=== PATIENT | male | born 1950 | race Caucasian/White ===

== ENCOUNTER → 2017-06-13 | Outpatient (CLI) | payer OTHER, MEDICARE ==
[~2017-06-13] VITALS: Ht 167.6 cm; Wt 81.5 kg
[~2017-06-13] MED LIST: ACETAMINOPHEN325 M1 PO; CELEXA 10 MG TA10 M1 PO; CHLORTRIMETON; CLARITIN10 MG PO; COZAAR100 MG PO; FERROUS SULFATE PO; FLONASE 0.05%50 MCG NASAL; HYTRIN 1 MG CAP1 MG PO; LIMBREL 500 MG500 MG PO; LOVASTAT20 PO; MEN PO; NAPROSYN500 MG PO; NORCO 5-325 TA1 EACH PO; OMEPRAZOLE 20 M20 MG PO; RAPAFLO8 MG PO; TRAMADOL 50 MG50 MG PO; VOLTAREN GEL 1100 G1; VOLTAREN GEL 1100 G1 TOP; ZIAC 5-6.25 MG1 EACH PO; [UNRECOGNIZED DRUG - OTHER]; [UNRECOGNIZED DRUG - OTHER] PO
--- NOTE | ~2017-06-13 | HPC ---
[facility] [place] [address] PAIN MANAGEMENT CONSULTATION Name: MARGOT HART Room #: REG [facility].#: [id number] Admission: 06/13/17 Attend Phys: Aravind Castellano DO Discharge: Date of : 50 Report #: [id number] THIS REPORT FOR: //name// CC: Kyree Castellano DATE OF SERVICE: 06/13/2017 CHIEF COMPLAINT: Low back pain, right lower extremity pain with paresthesias. HISTORY OF PRESENT ILLNESS: As you know, the patient is a 67-year-old male who has had a ongoing history of intermittent low back pain that has been present for years. He states that on 05/27/2017, he began to experience increasing back pain, right lower extremity pain with paresthesias. The patient ultimately sought evaluation from his primary care physician, Dr. Oneal Gill, who referred the patient to our clinic for evaluation for suspected lumbar radiculopathy. Findings on the MRI were such that the patient was referred to our clinic for interventional treatments. The patient indicates today pain is continuous, describes the pain as shooting, stabbing, sharp, numbness and tingling, places current pain score 10/10, daily average at 8-10/10, worst pain has been is 10/10. The patient states that sitting and standing for long periods of time exacerbates symptoms; lying down and repositioning appears to improve pain. He has been referred to our service by his primary care physician, Dr. Oneal Gill to discuss possibility of epidural injections to address lumbar radicular symptoms. PAST MEDICAL HISTORY: 1. Hypertension. 2. Gastroesophageal reflux disease. 3. Hyperglycemia. 4. Seasonal allergies. 5. Depression. 6. Hyperlipidemia. 7. Adenocarcinoma of the prostate. 8. Colon polyps. PAST SURGICAL HISTORY: 1. Excision of hemangioma. 2. Open reduction and internal fixation of left ankle fracture. 3. Herniorrhaphy x 2. 4. Radiation therapy of the prostate. SOCIAL HISTORY: The patient denies tobacco use. Denies IV or illicit drug use. He denies chronic alcohol use. 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 He is not receiving workman's compensation nor is he trying to obtain [address] [address] PAIN MANAGEMENT CONSULTATION Name: MARGOT HART [facility] [id number] Admission: 06/13/17 Attend Phys: Aravind Castellano DO Discharge: Date of : 50 Report #: [id number] disability benefits. He is unaccompanied today. REVIEW OF SYSTEMS: Positive for wearing corrective eyewear, night sweats, peptic ulcer disease, nocturia, depression, low back pain, right lower extremity pain and paresthesias. All other review of systems negative per 12-point review of systems other than those listed in history of present illness. Pain impact score 43/70 indicating moderate to severe interference of daily activities secondary to pain. ALLERGIES: No known drug allergies. CURRENT MEDICATIONS: Voltaren gel, apply topically up to 4 times a day; ferrous sulfate mg once a day, lovastatin 20 mg twice a day, Hytrin 1 mg once a day, losartan 100 mg once a day, omeprazole 20 mg per day, Ziac 5/6.25 mg once a day, Rapaflo 8 mg once a day, citalopram 10 mg per day. IMAGING: MRI of lumbar spine obtained 06/06/2017 shows L1-L2 unremarkable; L2-L3, minimal disk bulge, slightly more prominent on the right; mild neural foraminal narrowing. No evidence of disk herniation or central canal stenosis. L3-L4, moderate right foraminal narrowing, minimal thecal sac stenosis measuring 1.1 cm. L4-L5, hypertrophic bilateral facet arthropathy with a 0.3 cm anterior listhesis, no evidence of disk herniation, moderate right and mild left neural foraminal narrowing, thecal sac measures 1 mm. L5-S1, thecal sac measuring 1.2 mm. There is no evidence of disk herniation, central canal stenosis, neural foraminal stenosis. PHYSICAL EXAMINATION: VITAL SIGNS: Blood pressure 136/93, pulse 54, respiratory rate 16, unlabored. The patient is 100% on room air, height 5 feet 6 inches tall, weight 179.6 kg, BMI calculated 29. GENERAL: Well-developed, well-nourished, well-hydrated 67-year-old male appearing his stated age, placing current pain score at around 8 to 10/10. HEENT: Normocephalic, atraumatic. Pupils equal, round, reactive to light. Extraocular muscles are intact. Sclerae are nonicteric without injection. NEUROLOGIC: Cranial nerves 2-12 grossly intact. Speech is fluent. The patient deemed a good historian. LUNGS: Clear. No wheeze, rhonchi or rales. CARDIOVASCULAR: Regular. No appreciable gallop or rub. ABDOMEN: Soft, nontender, nondistended, normoactive bowel sounds. EXTREMITIES: Show no clubbing, no cyanosis, no edema. MUSCULOSKELETAL: Lower extremity strength appears equal and symmetrical 5/5, intact to light touch from L1 through S2 dermatomes. Deep tendon reflexes are symmetrical at patellar and Achilles. Ankle clonus negative. Babinski is negative. Gait slightly antalgic favoring right lower extremity over left. Seated straight leg raising negative. Supine straight leg raising, mildly [facility] [address] [place] [address] PAIN MANAGEMENT CONSULTATION Name: MARGOT HART Room #: REG [facility].#: [id number] Admission: 06/13/17 Attend Phys: Aravind Castellano DO Discharge: Date of : 50 Report #: [id number] positive right. Kofi's test negative. Modified Gaenslen's positive for axial low back pain. ASSESSMENT: 1. Symptomatic lumbar radiculopathy. 2. Displacement of lumbar intervertebral disk with radiculopathy. 3. Lumbosacral spondylosis with radiculopathy. 4. Neural foraminal stenosis of the lumbar spine. 5. Chronic intractable pain. PLAN: 1. The patient has been referred to our service by his primary care physician, Dr. Oneal Gill for evaluation for suspected lumbar radiculopathy. The patient and I spent approximately 24 minutes of time reviewing the patient's MRI and how the findings on the MRI correlate to symptoms he is currently experiencing. I am pleased to indicate today the patient has no notable surgical need at this juncture. I do believe that more conservative treatment options may be available. We discussed the following treatments with the patient based on the findings on MRI. 2. The patient and I discussed physical therapy, stretching exercises, core strengthening. The patient states he has been provided information about this type of treatment he has been doing these at home, but has not noticed much in the way of improvement. He has not had formalized physical therapy. We discussed medication management with addition of a nonsteroidal anti-inflammatory on a consistent basis along with a neuropathic pain medication in the form of either Neurontin, Lyrica, amitriptyline, nortriptyline, Cymbalta. We also discussed epidural injections for which the patient was referred to our clinic. Spinal cord stimulators were discussed, though I do not feel the patient is at this level of necessity. Surgical options as indicated above are not necessary. After reviewing the risks and benefits of all the proposed treatment options, the patient chose to begin with a lumbar epidural injection. The patient was advised risks and benefits of a lumbar epidural injection. These risks include but are not necessarily limited to bleeding, bruising, infection, worsening pain, no relief of pain, also risk of temporary or permanent muscle weakness, temporary or permanent nerve damage, possible paralysis and . The patient states understood and wished to proceed. No medication changes were made at today's visit. The patient will continue current medical therapy as previously prescribed. The patient will return to our clinic in approximately 3 weeks. At that time, review efficacy of today's epidural injection and determine if next in the series of epidural injections might be necessary. We wish to thank Dr. Gill for the referral of this patient [place] [address] PAIN MANAGEMENT CONSULTATION Name: MARGOT HART Room #: REG [facility] Eduardo#: [id number] Admission: 06/13/17 Attend Phys: Aravind Castellano DO Discharge: Date of : 50 Report #: [id number] will keep you apprised of his response to treatment as we address his ongoing pain. Again, we wish to thank you for the opportunity to participate in his care. PROCEDURE NOTE DESCRIPTION OF PROCEDURE: L5-S1 right paramedian epidural steroid injection under fluoroscopic guidance. This is the first procedure of the first series that the patient is undergoing. After obtaining written consent, the patient was taken back to the fluoroscopy suite, placed in a prone position with pillow under the abdomen to decrease lumbar lordosis. The skin overlying the lumbosacral area was then prepped and draped in aseptic fashion. The L5-S1 vertebral interspace was then identified by AP fluoroscopy. The skin and subcutaneous tissue overlying the target site of injection was anesthetized with 3 mL 1% lidocaine. A(n) 20-guage 3-1/2 inch Tuohy needle was then advanced under fluoroscopic guidance towards the epidural space using a right paramedian approach. The epidural space was identified using loss of resistance to air technique. After negative aspiration for heme or cerebrospinal fluid, a total of 1 mL of Omnipaque was injected. A lumbar epidurogram was confirmed using both AP and lateral fluoroscopy. After negative aspiration for heme or cerebrospinal fluid, 5 mL of solution containing 2 mL 40 mg/mL, 80 mg total triamcinolone, 3 mL lidocaine 1% was injected in increments. Contrast spread was noted at the posterior epidural space. The needle was then retracted approximately half way and needle tract flushed with 1 mL of 1% lidocaine. Needle was then removed. There were no apparent sensory or motor deficits in the lower extremity following the procedure. A sterile bandage was placed over the injection site. The heart rate, pulse, oximetry and blood pressure were continuously monitored after the procedure. There were no apparent complications. The patient tolerated the procedure well and was carefully escorted to the recovery room in stable condition. There were no apparent complications. After meeting discharge criteria, the patient was then discharged home. <ELECTRONICALLY SIGNED> By: Aravind Castellano DO 06/26/17 0712 [id number] Aravind Castellano DO /nt
[2017-06-13 09:54] VITALS: BP 136/93
== END | disposition home or self-care (01) ==
LOC: PAIN 07:11
DX: M51.16 Intervertebral disc disorders with radiculopathy, lumbar region (principal); M48.06 Spinal stenosis, lumbar region; G89.29 Other chronic pain; I10 Essential (primary) hypertension; K21.9 Gastro-esophageal reflux disease without esophagitis; Z88.8 Allergy status to other drugs, medicaments and biological substances; F32.9 Major depressive disorder, single episode, unspecified; E78.5 Hyperlipidemia, unspecified; Z87.19 Personal history of other diseases of the digestive system; Z85.46 Personal history of malignant neoplasm of prostate

== ENCOUNTER → 2017-07-04 | Outpatient (CLI) | payer OTHER, MEDICARE ==
[~2017-07-04] VITALS: Ht 167.6 cm; Wt 76.0 kg
[~2017-07-04] MED LIST changes: +NABUMETONE 500500 M1 PO
--- NOTE | ~2017-07-04 | HPC ---
[facility] [place] [address] PAIN MANAGEMENT CONSULTATION Name: MARGOT HART [facility] [id number] Admission: 07/04/17 Attend Phys: Aravind Castellano DO Discharge: Date of : 50 Report #: [id number] THIS REPORT FOR: //name// CC: Kyree Castellano DATE OF SERVICE: 07/04/2017 REFERRING PHYSICIAN: Kyree Gill MD CHIEF COMPLAINT: Low back pain, right lower extremity pain and paresthesias. HISTORY OF PRESENT ILLNESS: As you know, the patient is a 67-year-old male who was referred back to our clinic by his primary care physician, Dr. Kyree Gill for recurrent lumbar radicular symptoms. The patient at that visit of 06/13/2017, diagnosed with symptomatic lumbar radiculopathy secondary to the displacement of lumbar intervertebral disk and lumbosacral spondylosis without myelopathy. The patient's combinations of symptoms lead to neural foraminal stenosis of the lumbar spine and thus lumbar radiculopathy. He underwent a lumbar epidural injection under fluoroscopic guidance at that visit, which according to the patient provided no pain improvement. He reports today pain level of 10/10, states pain is beginning in low back, radiating down the right leg all the way to his ankle. He states his pain is sore, aching, numbness, and tingling, exacerbated with sitting, improves with standing. He has returned today in followup visit to discuss treatment options. ALLERGIES: No known drug allergies. CURRENT MEDICATIONS: Diclofenac sodium gel, ferrous sulfate, lovastatin, Hytrin, Cozaar, omeprazole, Ziac, Rapaflo, and Celexa. SOCIAL HISTORY: The patient denies tobacco use. Denies IV or illicit drug use. Denies any chronic alcohol use. He is unaccompanied at this visit. IMAGING: No new imaging available. PHYSICAL EXAMINATION: VITAL SIGNS: Blood pressure 125/57, pulse is 70, respiratory rate 16 and unlabored, the patient is 98% on room air, height 5 feet 6 inches tall, weight 167 pounds, and BMI calculated 27. GENERAL: Well-developed, well-nourished, well-hydrated 67-year-old male, he appears his stated age, he is placing current pain score 10/10. HEENT: Normocephalic, atraumatic. Pupils are equal, round, and reactive to light. Extraocular muscles are intact. Sclerae [place]ter[place] [address] PAIN MANAGEMENT CONSULTATION Name: MARGOT HART Room #: REG [facility].#: [id number] Admission: 07/04/17 Attend Phys: Aravind Castellano DO Discharge: Date of : 50 Report #: [id number] NEUROLOGIC: Cranial nerves 2-12 are grossly intact. Speech is fluent. The patient deemed a good historian. LUNGS: Clear. No wheeze, rhonchi, or rales. CARDIOVASCULAR: Regular. No appreciable gallop or rub. ABDOMEN: Soft, nontender, and nondistended. EXTREMITIES: Show no clubbing, no cyanosis, and no edema. MUSCULOSKELETAL: Seated straight leg raising positive right, supine straight leg raising positive right. Kofi's test negative. Modified Gaenslen's positive for axial low back pain. Muscle bulk and tone equal and symmetrical in lower extremities. Gait mildly antalgic favoring right lower extremity over left. ASSESSMENT: 1. Symptomatic lumbar radiculopathy. 2. Displacement of lumbar intervertebral disk with radiculopathy. 3. Lumbosacral spondylosis with radiculopathy. 4. Neural foraminal stenosis of lumbar spine with radiculopathy. 5. Chronic intractable pain. PLAN: 1. The patient returns today in followup visit having indicated only transient improvement with the epidural injection at last visit. He received no long-term benefit. Unfortunately, I believe his foraminal stenosis may be such that surgical options may be necessary. We did discuss the possibility of initiating neuropathic pain medications in hopes of improving pain, we will make this adjustment today, if this is ineffective, we would recommend moving forward with surgical options including a spinal cord stimulator trial as a possibility or traditional neurosurgery approach. We will consider his options, but he is amenable to begin medication therapy. 2. The patient was provided a sample pack of Gralise, he will begin at 300 mg dose and then continue as directed in the sample pack. He will contact our clinic in approximately a week to discuss effects. He is to continue until reaching 1800 mg at night, assuming no side effects, determine if he receives benefit. He was given a sample pack of the Gralise today. We will review its efficacy in approximately 2 weeks. 3. We would consider referral to a neurosurgeon if the patient requests. If this is the case, I do recommend that the patient contact his PCP to discuss their recommended surgical teams. We could also assist in referring the patient if needed. 4. We will see the patient back in followup visit hopefully in a couple of weeks with good efficacy from neuropathic pain medication. By: 0810 0957 Aravind Castellano, DO /nt
== END | disposition home or self-care (01) ==
LOC: PAIN 07:05
DX: M51.16 Intervertebral disc disorders with radiculopathy, lumbar region (principal); M47.817 Spondylosis without myelopathy or radiculopathy, lumbosacral region; Z79.899 Other long term (current) drug therapy; M48.06 Spinal stenosis, lumbar region; G89.29 Other chronic pain

== ENCOUNTER → 2017-08-01 | Outpatient (CLI) | payer OTHER, MEDICARE ==
[~2017-08-01] VITALS: Ht 167.6 cm; Wt 76.5 kg
[~2017-08-01] MED LIST changes: +NUCYNTA50 MG PO
--- NOTE | ~2017-08-01 | HPC ---
[facility] [address] [place] [address] PAIN MANAGEMENT CONSULTATION Name: MARGOT HART [facility] [id number] Admission: 08/01/17 Attend Phys: Aravind Castellano DO Discharge: Date of : 50 Report #: [id number] THIS REPORT FOR: //name// CC: Kyree Castellano DATE OF SERVICE: 08/01/2017 REFERRING PHYSICIAN: Kyree Gill M.D. CHIEF COMPLAINT: Low back pain, right lower extremity pain and paresthesias. HISTORY OF PRESENT ILLNESS: As you know, the patient is a 67-year-old male with longstanding history of low back pain, right lower extremity pain. The patient indicates pain is sharp and stabbing in sensation, places current pain score today over 10 exacerbated with sitting. Nothing appears to improve pain. The patient was referred to our service initially to discuss treatment options. We have trialed the patient on medication therapy. He has even undergone the requested epidurals without efficacy. He returns today in followup visit stating he needs assistance with medication management. He states that his symptoms have become intolerable and he is requesting adjustment in treatment. He denies any injury or trauma that may have led to progression of symptoms. ALLERGIES: No known drug allergies. CURRENT MEDICATIONS: Nabumetone 500 mg 3 times a day, ferrous sulfate 65 mg per day, lovastatin 20 mg twice a day, terazosin 1 mg per day, losartan 100 mg per day, omeprazole 20 mg per day, Ziac 5.5/6.25 mg once a day, Rapaflo 8 mg once a day and citalopram 10 mg per day. SOCIAL HISTORY: The patient denies tobacco, IV or illicit drug use. Denies any chronic alcohol use. He is accompanied by his , present in room today. IMAGING: No new imaging available. PHYSICAL EXAMINATION: VITAL SIGNS: Blood pressure 142/88, pulse is 56 and respiratory rate 16 and unlabored. The patient is 97% on room air, height 5 feet 6 inches tall, weight 168.6 pounds and BMI calculated 27.2. GENERAL: Well developed, well nourished, well hydrated, somewhat anxious 67-year-old male appearing his stated age, placing current pain score at approximately 8/10. HEENT: Normocephalic and atraumatic. Pupils equal, round and reactive to light. Extraocular muscles are intact. Sclerae nonicteric without injection. NEUROLOGICAL: Cranial nerves 2 through 12 grossly intact. Speech is pressured. [address] [address] PAIN MANAGEMENT CONSULTATION Name: MARGOT HART Room #: REG [facility]#: [id number] Admission: 08/01/17 Attend Phys: Aravind Castellano DO Discharge: Date of : 50 Report #: [id number] EXTREMITIES: Show no clubbing, no cyanosis and no edema. MUSCULOSKELETAL: Lower extremity strength is symmetrical 5/5, muscle bulk and tone equal and symmetrical. Seated straight leg raising positive right and supine straight leg raising positive on right. Kofi's test negative. Modified Gaenslen's positive for axial low back pain. Ankle clonus negative. Babinski is negative. Gait is mildly antalgic favoring right lower extremity over the left. ASSESSMENT: 1. Symptomatic lumbar radiculopathy. 2. Displacement of lumbar intervertebral disk with radiculopathy. 3. Lumbosacral spondylosis with radiculopathy. 4. Neural foraminal stenosis of the lumbar spine. 5. Chronic intractable pain. PLAN: 1. The patient returns today in followup visit requesting adjustments in medication therapy. He has undergone epidural injections. We have trialed more conservative treatment options and has not seen efficacy with either of these adjustments. The patient was sent to our clinic to trial epidural injections. Unfortunately, these have failed from a standpoint if they did not provide long-term efficacy. We have recommended the patient to follow up with Neurosurgery as he will likely need surgical options to control symptoms. We have agreed to provide the patient with adjustments in therapy today in hopes of improving pain for a short term treatment option prior to surgical consultation. 2. The patient will be started on samples of Lyrica. We have given the patient Lyrica to help control neuropathic symptoms. He will start with a dose of 75 mg dose for 7 nights, increase to 150 mg doses for 7 nights, then 75 mg morning and 150 mg at night. He has not had to titrate the medication to this level. If no improvement in symptoms and no side effects, we may escalate the dose further as you are aware 450-600 mg is the top dose of this medication can be titrated too. This is the initial step in therapy in hopes of improving the patient's neuropathic symptoms. 3. The patient was provided prescription of Nucynta 50 mg dose 1 tab p.o. t.i.d., given the patient #90 tablets. We have utilized Nucynta specifically for its neuropathic pain control and its low potential for abuse. We requested that the Nucynta be provided on 3 times a day basis for pain control. This is an appropriate medication for this person's condition. Those medications such as hydrocodone, oxycodone and morphine are not indicated for neuropathic pain secondary to lumbar radiculopathy and should not be requested or utilized. We must use the appropriate medication for the appropriate problem. We will begin the process of authorization if necessary to get the Nucynta approved. 4. The patient will follow up with Neurosurgery as we have suggested as the patient will ultimately need some type of surgical intervention given the fact [facility] [address] [place] [address] PAIN MANAGEMENT CONSULTATION Name: MARGOT HART Room #: REG [facility].#: [id number] Admission: 08/01/17 Attend Phys: Aravind Castellano DO Discharge: Date of : 50 Report #: [id number] that he has not noted improvement in symptoms with more conservative treatment options. By: 0737 0849 Aravind Castellano DO /nt
[2017-08-01 10:29] VITALS: BP 142/88
== END | disposition home or self-care (01) ==
LOC: PAIN 07:02
DX: M51.16 Intervertebral disc disorders with radiculopathy, lumbar region (principal); M47.27 Other spondylosis with radiculopathy, lumbosacral region; G89.29 Other chronic pain; Z79.899 Other long term (current) drug therapy

== ENCOUNTER → 2017-08-21 | Outpatient (CLI) | payer OTHER, MEDICARE ==
[~2017-08-21] VITALS: Ht 167.6 cm; Wt 77.4 kg
[~2017-08-21] MED LIST changes: +LYRICA 75 MG CA75 MG PO; +MOBIC15 MG PO
--- NOTE | ~2017-08-21 | HPC ---
[facility] [place] [address] PAIN MANAGEMENT CONSULTATION Name: MARGOT HART [id number] Admission: 08/21/17 Attend Phys: Aravind Castellano DO Discharge: Date of : 50 Report #: [id number] THIS REPORT FOR: //name// CC: Kyree Castellano REFERRING PHYSICIAN: Dr. Kyree Gill CHIEF COMPLAINT: Low back pain, right lower extremity pain and paresthesias. HISTORY OF PRESENT ILLNESS: As you know, the patient is a 67-year-old male with long-standing history of low back pain, right lower extremity pain and paresthesias. He indicates pain is sharp, stabbing. He had numbness and tingling when describing pain. He states that he is now able to stand and go about on activities of daily living, but is unable to sit due to ongoing pain issues. The patient has been trialled on immediate release gabapentin, but failed due to side effects of somnolence, decreased mental acuity, disorientation and confusion. We did start the patient on once a day dose of Gralise at night in hopes of mitigating some of the symptoms he was experiencing with gabapentin. This medication worked well, but coverage was suboptimal and cost of the medication was nearly $900 a month. We then transferred the patient over to Lyrica, which he is taking currently. He is taking 75 mg in morning and 150 mg at night. He has had no side effects and is noting improvement in symptoms. He is returning in followup visit for adjustments in therapy and to discuss options for treatment. ALLERGIES: No known drug allergies. CURRENT MEDICATIONS: Nabumetone, ferrous sulfate, lovastatin, terazosin, losartan, omeprazole, Ziac, Rapaflo, citalopram, Lyrica. SOCIAL HISTORY: The patient denies tobacco, IV or illicit drug use. Denies any chronic alcohol use. He is accompanied by his who is present in room today. IMAGING: No new imaging available. PHYSICAL EXAMINATION: VITAL SIGNS: Blood pressure 121/84, pulse is 56, respiratory rate 16 and unlabored, the patient is 99% on room air. Height 5 feet 6 inches tall, weight 170.6 pounds, BMI calculated at 27.5. GENERAL: Well-developed, well-nourished, well-hydrated, 67-year-old male. He appears stated age, pain is rated today at 3/10. HEENT: Normocephalic, atraumatic. Pupils are equal, round, and reactive to light. Extraocular muscles are intact. EXTREMITIES: Show no clubbing, no cyanosis, no edema. [facility] [address] [place] [address] PAIN MANAGEMENT CONSULTATION Name: HARTMARGOT TERRY KEISHA Room #: REG [facility] [place]#: [id number] Admission: 08/21/17 Attend Phys: Aravind Castellano DO Discharge: Date of : 50 Report #: [id number] MUSCULOSKELETAL: Lower extremity strength is symmetrical again today at 5/5, intact to light touch from L1 through S2 dermatomes. Seated straight leg raising positive on the right, supine straight leg raising positive on the right. ASSESSMENT: 1. Symptomatic lumbar radiculopathy. 2. Displacement of lumbar intervertebral disk with radiculopathy. 3. Lumbosacral spondylosis with radiculopathy. 4. Neural foraminal stenosis of lumbar spine. 5. Chronic intractable pain. PLAN: 1. The patient returns today in followup visit where we have discussed medication management. I do believe that Lyrica is a good choice for him to take. He is not indicating any side effects to medication at this time and is noting good benefit. He originally was unable to stand, walk or do any activities due to pain. He is now only limited in sitting for any length of time due to increasing pain with numbness and tingling. Overall, the patient showed some significant improvement. I recommend adjusting his Lyrica at this time. 2. We will increase Lyrica to 150 mg in morning and 150 mg at night. Continue for 7 days, then 150 mg in morning, 225 mg at night for 7 days, then 225 mg b.i.d. The patient was advised anytime during the titration if he notes improvement in symptoms, to stabilize that dose. If no improvement, then adjust medication as directed. 3. The patient is considering possible surgical options. We discussed with him today the spinal cord stimulator technology and how it may improve his symptoms. He is interested in the device itself. He was given information both in digital and written form today about Nevro spinal cord stimulator. We also discussed the fact that he would have to see Psychiatry and be deemed an appropriate candidate from a psychological standpoint to undergo trial implantation. If the patient wishes to move forward with this device, he will contact the psychiatrist and be seen in consultation. Once he has completed his psychiatric evaluation, he is to contact our clinic so that we can look for the results. If he is noted to be a good candidate from a psychological standpoint, we would then look forward to scheduling the patient for a trial implantation. If this is then effective, then move forward with permanent implant. He can consider this as an option. 4. The patient is considering possible surgical evaluation. He wishes to discuss his case further with Dr. Gill and then have referrals placed for Neurosurgery consultation. Given the findings on the imaging study, the only surgical possibility would be foraminotomy on the right-sided L3-L4, L4-L5 to address the moderate foraminal stenosis. Otherwise, there is no surgical option available. He will consider this as an option. He wishes to discuss referrals with Dr. Gill. [place] [address] [place] [address] PAIN MANAGEMENT CONSULTATION Name: MARGOT HART Room #: [facility]#: [id number] Admission: 08/21/17 Attend Phys: Aravind Castellano DO Discharge: Date of : 50 Report #: [id number] 5. We will see the patient back in followup visit for Lyrica refills 1 month from today. Otherwise, if he does undergo psychiatric evaluation, he can contact the clinic and we will find the information and then discuss scheduling a temporary implant of a spinal cord stimulator. By: [id number] Aravind Castellano DO /nt
[2017-08-21 13:28] VITALS: BP 121/84
== END ==
LOC: PAIN 05:59
DX: M47.27 Other spondylosis with radiculopathy, lumbosacral region (principal); M51.16 Intervertebral disc disorders with radiculopathy, lumbar region; M48.061 Spinal stenosis, lumbar region without neurogenic claudication

== ENCOUNTER → 2017-09-25 | Outpatient (CLI) | payer OTHER, MEDICARE ==
[~2017-09-25] VITALS: Ht 167.6 cm; Wt 80.0 kg
[~2017-09-25] MED LIST changes: +LYRICA150 MG PO
--- NOTE | ~2017-09-25 | HPC ---
[facility] [place] [address] [place] [address] PAIN MANAGEMENT CONSULTATION Name: MARGOT HART [facility] [id number] Admission: 09/25/17 Attend Phys: Aravind Castellano DO Discharge: Date of : 50 Report #: [id number] THIS REPORT FOR: //name// CC: Kyree Castellano DATE OF SERVICE: 09/25/2017 REFERRING PHYSICIAN: Kyree Gill M.D. CHIEF COMPLAINT: Low back pain, right groin and right lower extremity pain with paresthesias. HISTORY OF PRESENT ILLNESS: As you know, the patient is a 67-year-old male who returns today in followup visit, who now reporting pain score 2/10. He is taking Lyrica 150 mg p.o. b.i.d. and this has nearly completely resolved his overall pain. He is very pleased with response to the Lyrica, wishing to continue the therapy as he has found it quite beneficial. He indicates that sitting exacerbates symptoms. The quell device as well as medications combined to provide 2/10 pain, which is tolerable for him. He returns today in followup visit for continuation of medication therapy, is denying any side effects including somnolence, decrease in mental acuity, disorientation and confusion with therapy. ALLERGIES: No known drug allergies. CURRENT MEDICATIONS: Lyrica 150 mg twice a day, meloxicam 15 mg once a day, Bronkaid 1 tab p.r.n., ferrous sulfate 65 mg per day, lovastatin 20 mg per day, Hytrin 1 mg once a day, losartan 100 mg per day, omeprazole 20 mg per day, Ziac 5/6.25 mg twice a day, Rapaflo 8 mg once a day and citalopram 10 mg per day. SOCIAL HISTORY: The patient denies tobacco, alcohol, IV or illicit drug use. IMAGING DATA: No new imaging available. PHYSICAL EXAMINATION: VITAL SIGNS: Blood pressure 153/92, pulse 62 and respiratory rate 16 and unlabored. The patient 99% on room air. Height 5 feet 6 inches tall, weight 176.4 pounds and BMI calculated 28.5. GENERAL: Well-developed, well-nourished, well-hydrated 67-year-old male appearing stated age, placing current pain score 2/10. HEENT: Normocephalic and atraumatic. Pupils equal, round and reactive to light. EXTREMITIES: Show no clubbing, no cyanosis and no edema. MUSCULOSKELETAL: Seated straight leg raising negative. Supine straight leg [address] [address] PAIN MANAGEMENT CONSULTATION Name: MARGOT HART Room #: REG [facility].#: [id number] Admission: 09/25/17 Attend Phys: Aravind Castellano DO Discharge: Date of : 50 Report #: [id number] raising positive. Fabere's test is negative. Modified Gaenslen's positive for axial back pain. Ankle clonus negative. Babinski is negative. ASSESSMENT: 1. Symptomatic lumbar radiculopathy. 2. Displacement of lumbar intervertebral disk with radiculopathy. 3. Lower spondylosis with radiculopathy. 4. Neural foraminal stenosis of lumbar spine. 5. Chronic intractable pain. PLAN: 1. The patient returns today in followup visit for medication management. He states the combination of Lyrica 150 mg twice a day along with his quell device has improved his pain significantly. He is now able to go about almost all activities of daily living without significant pain interference. He is extremely pleased with response to medication therapy and wishes to continue treatment at current dosing. 2. The patient was provided a prescription of Lyrica 150 mg dose 1 tab p.o. b.i.d. I have given the patient the prescription today to continue the therapy with 2 refills, 3 months' worth of medication. 3. I recommend the patient continue to use his quell devices as he is found efficacy with its use and there is no potential side effects with therapy. I recommend continuing this in conjunction with the Lyrica. 4. I am pleased to see the patient is doing well with Lyrica therapy. We will continue him on this treatment for the foreseeable future and make adjustments in the medication if necessary. By: [id number] Aravind Castellano DO /nt
[2017-09-25 10:58] VITALS: BP 153/92
== END ==
LOC: PAIN 06:55
DX: M48.061 Spinal stenosis, lumbar region without neurogenic claudication (principal); M51.16 Intervertebral disc disorders with radiculopathy, lumbar region; M54.16 Radiculopathy, lumbar region; M47.26 Other spondylosis with radiculopathy, lumbar region; R20.0 Anesthesia of skin; G89.29 Other chronic pain; R10.31 Right lower quadrant pain

== ENCOUNTER → 2017-12-19 | Outpatient (CLI) | payer OTHER, MEDICARE ==
[~2017-12-19] VITALS: Ht 167.6 cm; Wt 82.6 kg
--- NOTE | ~2017-12-19 | HPC ---
[facility] [address] [address] PAIN MANAGEMENT CONSULTATION Name: MARGOT HART Room #: REG [facility].#: [id number] Admission: 12/19/17 Attend Phys: Aravind Castellano DO Discharge: Date of : 50 Report #: [id number] THIS REPORT FOR: //name// CC: Kyree Castellano DATE OF SERVICE: 12/19/2017 REFERRING PHYSICIAN: Kyree Gill MD CHIEF COMPLAINT: Low back pain, right groin pain, right lower extremity pain with paresthesias. HISTORY OF PRESENT ILLNESS: As you know, the patient is a 67-year-old male who returns today in followup visit, indicating good efficacy with Lyrica therapy. He has had some return of symptoms that he is now wishing to change his Lyrica therapy to a stronger dose. He does have plans to see Dr. Demetrio Jarquin on 04/01/2018 for surgical evaluation. At present, the patient is placing current pain score at 3/10. States sitting, driving exacerbate symptoms, medications appear to improve pain. He returns today in followup visit for adjustments in medication therapy in hopes of improving pain further. ALLERGIES: No known drug allergies. CURRENT MEDICATIONS: Lyrica 150 mg twice a day, meloxicam 15 mg once a day, Bronkaid 1 tab per day, ferrous sulfate 65 mg per day, lovastatin 20 mg per day, Hytrin 1 mg once a day, losartan 100 mg per day, omeprazole 20 mg per day, Ziac 5/6.25 mg twice a day, Rapaflo 8 mg once a day, citalopram 10 mg per day. SOCIAL HISTORY: The patient denies tobacco, alcohol, IV or illicit drug use. He is unaccompanied today. IMAGING: No new imaging available. PQRS: The patient does have known osteoarthritis. No rheumatoid arthritis. His pain intensity today is 3/10. He is not a fall risk, has not had a fall in last 3 months. He is not on blood thinners. He does have a history of hypertension, treated with medications. He has not been on opioids for any length of time. He has a low addiction potential based on our assessment tool. PHYSICAL EXAMINATION: VITAL SIGNS: Blood pressure 155/81, pulse 60, respiratory rate 18 and unlabored. The patient is 97% on room air. Height 5 feet 6 inches tall, weight 182 pounds, BMI calculated 29.4. GENERAL: Well-developed, well-nourished, well-hydrated 67[place] [address] PAIN MANAGEMENT CONSULTATION Name: MARGOT HART [facility] [id number] Admission: 12/19/17 Attend Phys: Aravind Castellano DO Discharge: Date of : 50 Report #: [id number] appearing stated age, placing current pain score 3/10. HEENT: Normocephalic, atraumatic. Pupils equal, round, reactive to light. EXTREMITIES: Show no clubbing, no cyanosis, no edema. MUSCULOSKELETAL: Seated straight leg raising negative. Supine straight leg raising positive on the right. Kofi's test negative. Modified Gaenslen's positive for axial low back pain. Ankle clonus negative. Babinski is negative. ASSESSMENT: 1. Symptomatic lumbar radiculopathy. 2. Displacement of lumbar intervertebral disk with radiculopathy. 3. Lumbosacral spondylosis with radiculopathy. 4. Foraminal stenosis of the lumbar spine. 5. Chronic intractable pain. PLAN: 1. The patient has returned today in followup visit, indicating slow and progressive return of symptoms. He does indicate he has a surgical consultation with Dr. Demetrio Jarquin on 04/01/2018. He is looking forward to this surgical consultation and is planning to potentially undergo surgery to alleviate symptoms, so he may come off medications. He returns today requesting adjustments in therapy. We would recommend the following. 2. We will increase the Lyrica from 150 mg twice a day to possibly 150 mg 3 times a day. We will begin by providing 75 mg tablets at the noon hour in conjunction with the current medication of Lyrica 150 twice a day. This will lead to 150 mg in the morning, 75 mg in noon, and 150 mg at night. He will continue this for 7 days, then increase to 150 mg t.i.d. The patient was advised to assess after 7 days his noon dose. If his pain is well controlled at that time, I would recommend remaining at that level. If not improved, then go ahead and move towards 150 t.i.d. He was given 150 mg Lyrica tablets 3 per day, #90 with up to 4 refills. He will contact our clinic once he stabilizes on a dose. If we need to make adjustments in his prescription, we would do so, assuming he cannot reach 150 t.i.d. dose. 3. The patient appears to be doing well. This adjustment in medication will be reviewed as he begins titrating the therapy. 4. We will see the patient back in followup visit on as-needed basis. <ELECTRONICALLY SIGNED> By: Aravind Castellano DO 01/08/18 [id number] Aravind Castellano DO /cori
[2017-12-19 09:12] VITALS: BP 155/81
== END ==
LOC: PAIN 06:55
DX: M47.27 Other spondylosis with radiculopathy, lumbosacral region (principal); G89.29 Other chronic pain; I10 Essential (primary) hypertension; M19.90 Unspecified osteoarthritis, unspecified site; F11.90 Opioid use, unspecified, uncomplicated

== ENCOUNTER → 2020-09-29 | Outpatient (CLI) | payer OTHER, MEDICARE ==
[~2020-09-29] VITALS: Ht 167.6 cm; Wt 77.1 kg
[~2020-09-29] MED LIST changes: +BEE POLLEN550 MG PO; +CENTRUM SILVER1 EAC5 PO; +FISH OIL 1,001000 M2 PO; +SILDENAFIL20 MG PO; +TURMERIC1 GM PO; +WAL ITIN D PO
[2020-09-29 14:29] VITALS: BP 181/79
--- NOTE | 2020-09-29 14:55 | NUR ---
Pain Clinic Assessment: 1. History of Osteoarthritis: THUMBS BACK History of Rheumatoid Arthritis: Not Applicable 2. Height: 5 ft. 6 in. 167.6 cm. Weight: 170.0 lb. oz. 77.112 kg. Patient's BMI: 27.5 3. Vital Signs: BP: 181/79 Pulse: 58 Resp: 16 Temp: 02 Sat: 99 ECG Mon: 4. Pain Intensity: 3-4 5. Fall Risk: Dizziness: N Needs help standing or walking: N Fallen in the last 3 months: N Fall risk comments: 6. Patient on Blood Thinner: None 7. History of Hypertension: Y 8. Opioid Therapy greater than 6 weeks: N Opiate Contract Signed: 9. Risk Assessment Tool Provided: low-1 10. Functional Assessment Tool: 11. Recreational Drug Use: Current within past 3 mos Drug Type: MARIJUANA Tobacco Use: Former Smoker Tobacco Type: Amount or Packs/day: How Many Years: Alcohol Use: No Frequency: Quant:
--- NOTE | 2020-09-30 07:29 | HPC ---
[facility] [place] [address] PAIN MANAGEMENT CONSULTATION Name: MARGOT HART [facility] #: [facility] [id number] Admission: 09/29/20 Attend Phys: Aravind Castellano DO Discharge: Date of : 50 Report #: [id number] THIS REPORT FOR: cc: Oneal Gill MD, Christopher B. MD Johnson, James E. DO ~ DATE OF SERVICE: 09/29/2020 CHIEF COMPLAINT: Left neck pain. HISTORY OF PRESENT ILLNESS: As you know, the patient is a very pleasant 70-year-old male who has returned today in followup visits with concern of left neck pain. We last saw the patient on 12/19/2017 where he was being treated for lumbar radiculopathy secondary to the displacement of lumbar intervertebral disk and foraminal stenosis. The patient apparently has undergone surgery to address this issue with improvement in symptoms. We have not seen the patient since 12/19/2017 at that last visit. He returns today per the request of his primary care physician, Dr. Kyree Gill, to discuss ongoing left neck pain. The patient indicates that he has had pain on and off for years in the area. He has episodes of maybe 4-6 times a week, some discomfort in the left neck. He states that sometimes it even feels as if his neck gets stuck when trying to rotate to the left, this causes intense pain lasting for just a moment and then resolved spontaneously. The patient has recently undergone MRI of the cervical spine obtained on 09/22/2020, but has not had this reviewed by his physician. He returns today to discuss the findings of this MRI and discuss treatment options if there are any available to treat his symptoms. Today, the patient is reporting pain score at around 3-4/10, he states his pain being present is shooting, sharp, stabbing, pulling and intermittent. He states movement and turning his head is the only thing that exacerbates symptoms, but no specific single activity causes his pain. He is denying injury or trauma to the cervical spine. ALLERGIES: No known drug allergies. CURRENT MEDICATIONS: [place]-3 fish oil 1 tab per day, turmeric 1 gram per day, Bee Pollen 550 mg once a day, multivitamin 1 tab per day, loratadine, pseudoephedrine 1 tab p.r.n., sildenafil 20 mg 1 p.r.n., Lyrica 75 mg t.i.d., meloxicam 15 mg once a day, ferrous sulfate 65 mg once a day, lovastatin 20 mg per day, Hytrin 1 mg per day, losartan 100 mg per day, omeprazole 20 mg per day, Ziac 5/6.25 mg b.i.d., Rapaflo 8 mg once a day, citalopram 10 mg once a day. SOCIAL HISTORY: The patient denies tobacco use. He is a former smoker. He admits to marijuana use. Denies IV or illicit drug use. He denies any chronic alcohol use. He is unaccompanied at today's visit. [address] [address] PAIN MANAGEMENT CONSULTATION Name: MARGOT HART KEISHA Room #: REG CLI [facility] [id number] Admission: 09/29/20 Attend Phys: Aravind Castellano DO Discharge: Date of : 50 Report #: [id number] IMAGING: MRI cervical spine obtained on 09/22/2020 shows C2-C3 unremarkable. C3-C4 shows mild central canal and mild neural foraminal stenosis. There is mild facet arthropathy with thecal sac measuring 1.1 cm. C4-C5 shows disk degeneration, mild facet arthropathy. No evidence of disk herniation, central canal or neural foraminal stenosis. Thecal sac measures 1.3 cm. C5-C6 shows annular disk bulge with probable small central disk protrusion with mild spondylitic spurring of the vertebral endplates contributing to mild central canal stenosis and mild bilateral neural foraminal stenosis, thecal sac measuring 1.1 cm, C6-C7 degenerative changes with mild annular tear, bilateral facet arthropathy. No evidence of disk herniation, spinal stenosis or neuroforaminal stenosis, thecal sac measures 1.2 cm. C7-T1 unremarkable. PHYSICAL EXAMINATION: VITAL SIGNS: Blood pressure 181/79, pulse 58, respiratory rate 16 and unlabored. The patient is 99% on room air. Height 5 feet 6 inches tall, weight 170 pounds, BMI calculated 27.5. GENERAL: Well-developed, well-nourished, well-hydrated 70-year-old male appearing stated age. He is in no acute distress. Pain today rated at around 3-4/10. HEENT: Normocephalic, atraumatic. Pupils equal, round and reactive. NEUROLOGIC: Speech fluent. The patient deemed a good historian. LUNGS: Clear, no wheeze, rhonchi or rales. CARDIOVASCULAR: Regular. No appreciable gallop, no rub. ABDOMEN: Soft, nontender. EXTREMITIES: Show no clubbing, no cyanosis, no edema. MUSCULOSKELETAL: There is some palpatory tenderness over the paraspinal musculature of cervical spine. No spinous process tenderness. Spurling's test is negative. Cervical provocation testing including rotation, lateral flexion to the left cause intensification of pain, which is located just to the left of midline over the facet joints. Upper extremity strength is symmetrical 5/5. He appears to be intact to light touch from C5 through T1 dermatomes. Deep tendon reflexes are diminished, but symmetrical at biceps, brachialis and triceps. ASSESSMENT: 1. Cervicalgia. 2. Mild facet arthropathy of cervical spine. 3. Cervical spondylosis without radiculopathy. 4. Chronic intractable pain. PLAN: 1. Based on today's physical exam and the history the patient has provided, the description the patient uses in regards to pain as well as location of symptoms, it would appear he is suffering from mild facet arthropathy consistent with the findings at the C4-C5, C5-C6 level and possibly a small contribution of C6-C7. The patient and I went over his MRI in its entirety. We described the findings therein so that he would understand better, the minimal pathology noted. We [address] [address] PAIN MANAGEMENT CONSULTATION Name: HAILEYMARGOT LEE Room #: REG [facility] Eduardo#: [id number] Admission: 09/29/20 Attend Phys: Aravind Castellano DO Discharge: Date of : 50 Report #: [id number] also discussed the findings that would correlate to his current axial cervical spine symptoms, which is the facet arthropathy. We then discussed with the patient the treatment options, the following was discussed with the patient today. We discussed physical therapy, stretching exercises and traction techniques as a treatment course. The patient apparently has undergone chiropractic manipulation, but has had no traction techniques applied, which is the goal standard treatment for his facet arthropathy. We discussed medication management with the patient with a possible increase in his Lyrica to address residual lumbar radicular symptoms radiating down the right leg on a fairly consistent basis along with the assistance of helping with chronic neck pain. This could potentially reduce the severity and quantity of exacerbations of pain he experiences on a daily basis. We discussed with the patient, also interventional treatment such as intra-articular facet injections and ultimately surgical stabilization. After reviewing the risks and benefits of all proposed treatment options and understanding that the findings in his MRI shows only minor changes typical for a 70-year-old male, the patient chose to remain conservative. 2. The patient will be sent for physical therapy for mobility techniques and traction techniques to be applied to the cervical region. We [facility] I believe they would be an excellent source to treat his ongoing left neck pain due to facet arthropathy. He will begin a formalized physical therapy as quickly as possible. We recommend at least twice to possibly 3 times a week for treatment options up to 6 weeks. 3. We did discuss the possibility of increasing his Lyrica. I do not have any reason why the patient could not increase the medication. He is having continued neuropathic pain involving the low back and right lower extremity from his previous lumbar radiculopathy, which tends to be present on a daily basis. He is also experiencing increasing neck symptoms, which could be improved with the increase in Lyrica. We recommend that he increase from 75 mg 3 times a day to 75 mg in the morning and 75 mg at noon and 150 mg at night for 3 nights, if no improvement in symptoms, no side effects, then increase to 150 mg in the morning and 75 mg at noon and 150 mg at night. Continue that for 3-5 nights, if no improvement in symptoms, no side effects, then increase to 150 mg b.i.d. The patient will report efficacy as he increases the medication. If this medication is not controlled then can be provided through his PCP, we will be having no problem writing a prescription if he does run low of his current medication, so he can follow up with Dr. Gill for continuation of treatment, assuming efficacy. 4. We will make ourselves available to see the patient back in followup visit. At this juncture, we are both in agreement that more conservative treatment is appropriate. The fact that the findings in the cervical spine are fairly typical for a 70-year-old male, I think alleviate some of the patient's concerns. He is understanding of the limitations he may have been due to his facet arthropathy, but is willing to make those adjustments if necessary. We [place] [address] [place] [address] PAIN MANAGEMENT CONSULTATION Name: MARGOT HART Room #: REG CLSatnam Clark#: [id number] Admission: 09/29/20 Attend Phys: Aravind Castellano DO Discharge: Date of : 50 Report #: [id number] will be available to see him back in followup visit to discuss other treatment options if necessary. 5. We wish to thank Dr. Gill for the referral of the patient back to our clinic. We are pleased to be able to advise the patient of the findings of his MRI are not significantly concerning in that conservative treatment should be beneficial. Again, we wish to thank Dr. Gill for the opportunity to see the patient in consultation. <ELECTRONICALLY SIGNED> By: Aravind Castellano DO 09/30/20 0729 1624 09 Aravind Castellano DO /nt
== END ==
LOC: PAIN 06:56
PROVIDERS: ATTEND Anesthesiology Pain Medicine
DX: M47.812 Spondylosis without myelopathy or radiculopathy, cervical region (principal); G89.4 Chronic pain syndrome; Z79.891 Long term (current) use of opiate analgesic

== ENCOUNTER → 2021-11-22 | Outpatient (CLI) | payer OTHER, MEDICARE ==
[2021-11-22 12:53] LABS: BASOPHILS 0.9 % (0.0-2.0); EOSINOPHILS 5.8 % (0.0-3.0); HEMATOCRIT 41.5 % (42.0-52.0); HEMOGLOBIN 14.1 gm/dL (14.0-18.0); LYMPHOCYTES 18.9 % (24.0-44.0); MCH 29.9 pg (26.0-34.0); MCHC 33.9 g/dL (28.0-37.0); MONOCYTES 7.5 % (1.0-8.0); PLATELET COUNT 219 thou/uL (150-400); POLYS 66.9 % (36.0-66.0); RBC 4.72 mil/uL (4.50-6.00); RDW 12.9 % (10.5-14.5); WBC 5.9 thou/uL (4.0-11.0)
[2021-11-22 13:14] LABS: ALBUMIN 3.9 g/dL (3.4-5.0); CALCIUM 10.4 mg/dL (8.5-10.1); CREATININE 1.1 mg/dL (0.7-1.3); POTASSIUM 4.7 mmol/L (3.5-5.1); TOTAL BILIRUBIN 0.4 mg/dL (0.2-1.0); TOTAL PROTEIN 7.1 g/dL (6.4-8.2)
--- NOTE | 2021-11-22 14:37 | EKG ---
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: [facility] : 1950 Requested By: Satish Campos Order Number: [id number] MD: Cecil Quintero Measurements Intervals [place] Rate: 57 P: 72 MT: 159 QRS: 53 QRSD: 107 T: 59 QT: 408 QTc: 398 Interpretive Statements Sinus rhythm No previous ECG available for comparison Electronically Signed On 11-22-2021 14:36:59 [employer] by Cecil Quintero [email or web address] <ELECTRONICALLY SIGNED> By: Cecil Quintero MD, [facility] 11/22/21 1436 1213 1213 Cecil Quintero MD, FACC /EPI
== END ==
LOC: PUL 11:31 → CV 11:31
PROVIDERS: ATTEND Otolaryngology Plastic Surgery within the Head & Neck
DX: J32.2 Chronic ethmoidal sinusitis (principal); J32.0 Chronic maxillary sinusitis; J33.9 Nasal polyp, unspecified; J34.2 Deviated nasal septum; J34.3 Hypertrophy of nasal turbinates